=== PATIENT | female | born 1995 ===

== ENCOUNTER 2022-04-12 02:10 | Emergency (ER) | payer OTHER ==
[2022-04-12 03:22] LABS: ESTIMATED GFR 121 mL/min (>60)
[2022-04-12] MEDS ORDERED: Sulfamethoxazole/Trimethoprim 800-160 MG Tab PO ONE (03:48)
[2022-04-12] MEDS ORDERED: Methocarbamol 500 MG Tab PO ONE (03:48)
== END 2022-04-12 04:08 ==
LOC: JP.ED 02:10
DX: S06.0X0A Concussion without loss of consciousness, initial encounter (principal); S16.1XXA Strain of muscle, fascia and tendon at neck level, initial encounter; N30.00 Acute cystitis without hematuria; Z88.0 Allergy status to penicillin; Y04.0XXA Assault by unarmed brawl or fight, initial encounter
CPT/HCPCS: 36415; 70450; 72125; 80053; 80305; 80307; 81001; 84703; 85025; 99284; A9270